=== PATIENT | male | born 1950 | race Two or more races ===

== ENCOUNTER 2020-04-03 15:01 | Outpatient (CLI) | payer OTHER ==
[~2020-04-03] VITALS: Ht 180.3 cm; Wt 63.5 kg
[2020-04-03] MEDS ORDERED: NEILMED SINUS1 EAC1 NASAL (16:04)
[2020-04-03] MEDS ORDERED: CIPRODEX OTIC7.5 ML OT (16:05)
[2020-04-03] MEDS ORDERED: FLONASE16 GM NASAL (16:06)
== END 2020-04-03 17:00 | disposition home or self-care (01) ==
LOC: OFIC 805 15:01
PROVIDERS: ATTEND Otolaryngology
DX: R09.81 Nasal congestion (principal); H92.02 Otalgia, left ear; J34.89 Other specified disorders of nose and nasal sinuses; B37.84 Candidal otitis externa; H61.22 Impacted cerumen, left ear

== ENCOUNTER 2020-04-15 07:28 | Outpatient (CLI) | payer OTHER ==
[~2020-04-15 07:28] MED LIST: CIPRODEX OTIC7.5 ML OT; FLONASE16 GM NASAL; NEILMED SINUS1 EAC1 NASAL
== END 2020-04-15 07:35 | disposition home or self-care (01) ==
LOC: TOM 07:28
PROVIDERS: ATTEND Otolaryngology
DX: J32.0 Chronic maxillary sinusitis (principal)

== ENCOUNTER 2020-07-02 13:14 | Outpatient (CLI) | payer OTHER | END 2020-07-02 14:15 | disposition home or self-care (01) | LOC: OFIC 805 13:14 | PROVIDERS: ATTEND Otolaryngology | DX: R09.81 Nasal congestion (principal); J34.89 Other specified disorders of nose and nasal sinuses; J32.3 Chronic sphenoidal sinusitis; J32.1 Chronic frontal sinusitis; J32.2 Chronic ethmoidal sinusitis ==